=== PATIENT | female | born 2005 | race Caucasian/White ===

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

== ENCOUNTER 2024-01-24 08:50 | Outpatient (CLI) | payer OTHER, SELFPAY ==
[2024-01-24 09:15] LABS: Abs Immature Grans 0.02 10^3/uL (0.0-0.06); Absolute Basophil Count 0.01 10^3/uL (0.0-0.2); Absolute Eosinophil Count 0.16 10^3/uL (0.0-0.7); Absolute Lymphocyte Count 1.92 10^3/uL (1.2-3.4); Absolute Monocyte Count 0.31 10^3/uL (0.1-0.8); Absolute Neutrophil Count 2.75 10^3/uL (1.2-6.7); Basophils % 0.2; Eosinophils % 3.1; HCT 40.2 % (36.0-46.0); HGB 13.4 g/dL (11.2-15.7); Immature Grans % 0.4; Lymphocytes % 37.1; MCH 29.6 pg (27.0-33.0); MCHC 33.3 % (32.0-36.0); MCV 89 fL (80-95); MPV 9.5 fL (8.0-11.0); Neutrophils % 53.2; Platelet Count 322 10^3/uL (130-400); RBC 4.53 10^6/uL (3.93-5.22); RDW 12.4 % (11.7-14.6); RDW-SD 40.7 fL; WBC 5.17 10^3/uL (4.4-10.8)
[2024-01-24 16:33] LABS: Ferritin 26 ng/mL (8-252)
[2024-01-24 17:40] LABS: Iron 65 ug/dL (50-170); Total Iron Binding Capacity 292 ug/dL (250-450)
[2024-01-25 16:17] LABS: Transferrin 221 mg/dL (201-352)
== END 2024-01-24 08:51 | disposition home or self-care (01) ==
LOC: LBO 08:51
PROVIDERS: PCP Nurse Practitioner Pediatrics; Visit Provider Nurse Practitioner Family
DX: D50.9 Iron deficiency anemia, unspecified (principal)
CPT/HCPCS: 36415; 82728; 83540; 83550; 84466; 85025

== ENCOUNTER 2025-04-11 10:11 | Outpatient (REF) | payer OTHER, SELFPAY ==
--- NOTE | 2025-04-11 09:00 | PAPFT_PTH ---
PATIENT: Estefany Montiel LOC: [facility] U#:[id number] AGE/SX: 19/F ROOM: RE04/11/[address]: Magali Workman DO : 2005 BED: DIS: 04/11/2025 SPEC #: [id number] RECD: 04/11/25 13:07 STATUS: RADHA REDaniel #: [id number] DANETTE: 04/11/25 09:[address]: Magali Workman DEPT: [facility] Cytology RECD BY: Marleny Sharma ENTERED: 04/11/25 13:07 SP TYPE: PAPFT OTHR DR: Hazel Padilla, KALANI Tissues: 1 - CX/ENDOCX FOR PAP SMEARS Procedures: PAP THIN PREP/[facility] Screening HPV DNA PROBE Comments: [id number] (HPV 16 & 18/45) (CHLAMYDIA/GC)
[2025-04-12 12:03] LABS: Chlamydia Result Negative (Negative); GC Result Negative (Negative)
== END 2025-04-11 10:12 | disposition home or self-care (01) ==
LOC: LBN 10:11
PROVIDERS: PCP Nurse Practitioner Family; Visit Provider Obstetrics & Gynecology
DX: Z11.51 Encounter for screening for human papillomavirus (HPV) (principal); Z01.419 Encounter for gynecological examination (general) (routine) without abnormal findings; Z11.3 Encounter for screening for infections with a predominantly sexual mode of transmission
CPT/HCPCS: 87491; 87591; 88142; 87624